=== PATIENT | female | born 1960 | race Caucasian/White ===

== ENCOUNTER 2019-05-24 11:11 | Outpatient (CLI) | payer OTHER ==
[2019-05-24] MEDS ORDERED: DULO60CA56 PO (12:31)
[2019-05-24] MEDS ORDERED: ATOR40TA78 PO (12:31)
[2019-05-24] MEDS ORDERED: LAMO100T PO (12:31)
[2019-05-24] MEDS ORDERED: AMLO10TA8 PO (12:31)
[2019-05-24] MEDS ORDERED: HYDROCHLOROTH12.5 MG PO (12:31)
[2019-05-24] MEDS ORDERED: ARIP10TA33 PO (12:31)
[2019-05-24 12:34] LABS: BASOPHILS # (AUTO) 0.06 x10^3/uL (0-0.1); BASOPHILS % (AUTO) 1 % (0-1); EOSINOPHILS # (AUTO) 0.29 x10^3/uL (0-0.4); EOSINOPHILS % (AUTO) 4 % (1-7); LYMPHOCYTES # (AUTO) 3.06 x10^3/uL (1-3.4); LYMPHOCYTES % (AUTO) 36 % (22-44); MD NO; MEAN CORPUSCULAR HEMOGLOBIN 30.6 pg (27.0-34.8); MEAN CORPUSCULAR HGB CONC 33.7 g/dL (32.4-35.8); MEAN CORPUSCULAR VOLUME 91.1 fL (80-100); MONOCYTES # (AUTO) 0.61 x10^3/uL (0.2-0.8); MONOCYTES % (AUTO) 7 % (2-9); NEUTROPHILS # (AUTO) 4.49 x10^3/uL (1.8-6.8); NEUTROPHILS % (AUTO) 53 % (42-75); PLATELET COUNT 310 x10^3/uL (130-400); RED CELL DISTRIBUTION WIDTH 13.6 % (9.6-15.2)
[2019-05-24 12:47] LABS: ALANINE AMINOTRANSFERASE 31 U/L (12-78); ANION GAP 3 mmol/L (5-15); CALCIUM 9.1 mg/dL (8.5-10.1); CHLORIDE 103 mmol/L (98-107); CREATININE 0.91 mg/dL (0.55-1.02)
[2019-05-24 12:50] LABS: ALKALINE PHOSPHATASE 85 U/L (45-117); BILIRUBIN,TOTAL 0.5 mg/dL (0.2-1.0); TOTAL PROTEIN 7.3 g/dL (6.4-8.2)
== END 2019-05-24 23:59 | disposition home or self-care (01) ==
LOC: STAR 11:11
PROVIDERS: ATTEND Obstetrics & Gynecology Gynecology
DX: Z01.818 Encounter for other preprocedural examination (principal); R10.2 Pelvic and perineal pain; N83.209 Unspecified ovarian cyst, unspecified side; N81.4 Uterovaginal prolapse, unspecified; F17.200 Nicotine dependence, unspecified, uncomplicated; Z88.0 Allergy status to penicillin
CPT/HCPCS: 36415; 80053; 85025; 93005

== ENCOUNTER 2019-05-30 15:04 | Outpatient (CLI) | payer OTHER ==
[~2019-05-30 15:04] MED LIST: AMLO10TA8 PO; ARIP10TA33 PO; ATOR40TA78 PO; DULO60CA56 PO; HYDROCHLOROTH12.5 MG PO; LAMO100T PO
== END 2019-05-30 23:59 | disposition home or self-care (01) ==
LOC: RAD 15:04
PROVIDERS: ATTEND Obstetrics & Gynecology Gynecology
DX: Z01.818 Encounter for other preprocedural examination (principal); F17.200 Nicotine dependence, unspecified, uncomplicated
CPT/HCPCS: 71046

== ENCOUNTER 2019-06-08 12:07 | Day surgery (SDC) | payer OTHER ==
[~2019-06-08] VITALS: Ht 172.7 cm; Wt 84.7 kg
[~2019-06-08 12:07] MED LIST changes: +APREPITANT 40 MG CAPSULE ONE; +FENTANYL PF 250 MCG/5ML ONE; +GABAPENTIN 300 MG CAPSULE ONE; +MIDAZOLAM 1 MG/ML, 2ML ONE; +SCOPOLAMINE PATCH, 1.5MG PATCH.TD72 TD ONE
[2019-06-08 12:30] VITALS: BP 133/79
[2019-06-08] MEDS ORDERED: LACTATED RINGERS 1,000 ML IV SCH (12:37)
[2019-06-08] MEDS ORDERED: GENTAMICIN 80 MG/2 ML ONE (13:09)
[2019-06-08] MEDS ORDERED: THROMBIN SPRAY 20,000 UNIT SPRAY TP ONE ×2 (13:09)
[2019-06-08] MEDS ORDERED: BUPIVACAINE/PF 0.25% ONE (13:09)
[2019-06-08] MEDS ORDERED: LIDOCAINE 1%-EPI 1:100K, 20ML ONE (13:09)
[2019-06-08] MEDS ORDERED: FLUORESCEIN SODIUM 500 MG/5 ML ONE (13:14)
[2019-06-08] MEDS ORDERED: GABAPENTIN 300 MG CAPSULE ONE (13:14)
[2019-06-08] MEDS ORDERED: SCOPOLAMINE PATCH, 1.5MG PATCH.TD72 TD ONE (13:14)
[2019-06-08] MEDS ORDERED: EPINEPHRINE 1 MG/ML, 1ML ONE (13:14)
[2019-06-08] MEDS ORDERED: APREPITANT 40 MG CAPSULE ONE (13:15)
[2019-06-08] MEDS ORDERED: MIDAZOLAM 1 MG/ML, 2ML ONE (13:16)
[2019-06-08] MEDS ORDERED: FENTANYL PF 250 MCG/5ML ONE (13:16)
[2019-06-08] MEDS ORDERED: KETAMINE 10 MG/ML, 20ML ONE (13:37)
[2019-06-08] MEDS ORDERED: SUGAMMADEX 200 MG/2 ML IVPush ONE (16:12)
[2019-06-08] MEDS ORDERED: MEPERIDINE/PF 25MG/ML,1ML ONE (16:23)
[2019-06-08] MEDS ORDERED: MEPERIDINE/PF 25MG/ML,1ML IVPush PRN (16:30)
[2019-06-08] MEDS ORDERED: PROMETHAZINE 25 MG/ML, 1ML IV PRN (16:30)
[2019-06-08] MEDS ORDERED: ACETAMINOPHEN 325 MG TABLET PO PRN (16:30)
[2019-06-08] MEDS ORDERED: HYDROmorphone 2 MG/ML, 1ML IVPush PRN ×2 (16:30)
[2019-06-08] MEDS ORDERED: OXYcodone 5 MG/5 ML ORAL.SOL UDC PO PRN ×2 (16:30→21:00)
[2019-06-08] MEDS ORDERED: hydrALAzine 20 MG/ML, 1ML IV PRN (16:30)
[2019-06-08] MEDS ORDERED: FENTANYL PF 100 MCG/2ML IV PRN (16:30)
[2019-06-08] MEDS ORDERED: ALBUTEROL/IPRATROPIUM 2.5MG/0.5MG, 3 ML NPPB PRN (16:30)
[2019-06-08] MEDS ORDERED: ROCURONIUM 10MG/ML,5ML ONE (16:37)
[2019-06-08] MEDS ORDERED: KETOROLAC 30 MG/1 ML ONE (16:37)
[2019-06-08] MEDS ORDERED: CEFAZOLIN 1,000 MG ONE (16:37)
[2019-06-08] MEDS ORDERED: PHENYLEPHRINE 10 MG/ML ONE (16:37)
[2019-06-08] MEDS ORDERED: PROPOFOL 10 MG/ML, 20ML ONE (16:37)
[2019-06-08] MEDS ORDERED: ONDANSETRON 2MG/ML, 2ML ONE (16:37)
[2019-06-08] MEDS ORDERED: OXYcodone 5 MG/5 ML ORAL.SOL UDC ONE ×2 (16:53→17:02)
[2019-06-08] MEDS: OXYcodone 5 MG/5 ML ORAL.SOL UDC PO PRN ×2 (16:55→17:03)
[2019-06-08] MEDS ORDERED: ONDANSETRON 2MG/ML, 2ML IV PRN (19:30)
[2019-06-08] MEDS ORDERED: POTASSIUM CHLORIDE 20 MEQ in LACTATED RINGERS 1,000 ML IV SCH (20:00)
[2019-06-08] MEDS ORDERED: morphine SULFATE 10 MG/ML, 1ML IV PRN (20:00)
[2019-06-08] MEDS ORDERED: SODIUM CHLORIDE FLUSH 10ML SYR IVF SCH (21:00)
[2019-06-08] MEDS ORDERED: SIMETHICONE 80 MG CHEW TAB PO SCH (21:00)
[2019-06-08] MEDS ORDERED: DOCUSATE 100 MG CAPSULE PO SCH (21:00)
== END 2019-06-08 20:00 | disposition home or self-care (01) ==
LOC: OUT 12:07 → 4NE 17:24 → OUT 20:00
PROVIDERS: ATTEND Obstetrics & Gynecology Gynecology
DX: N81.4 Uterovaginal prolapse, unspecified (principal); D25.9 Leiomyoma of uterus, unspecified; N83.8 Other noninflammatory disorders of ovary, fallopian tube and broad ligament; N83.292 Other ovarian cyst, left side; N83.291 Other ovarian cyst, right side; R10.2 Pelvic and perineal pain; I10 Essential (primary) hypertension; K21.9 Gastro-esophageal reflux disease without esophagitis; F32.9 Major depressive disorder, single episode, unspecified; Z79.899 Other long term (current) drug therapy; Z88.0 Allergy status to penicillin; Z90.49 Acquired absence of other specified parts of digestive tract; Z98.890 Other specified postprocedural states
CPT/HCPCS: 57260; 58552; 88307; J0171; J0690; J1885; J2175; J2250; J2370; J2405; J2704; J3010; J3490; J7120; J8501; S2900; G0378; J1580